=== PATIENT | female | born 1965 | race Caucasian/White ===

== ENCOUNTER 2022-11-04 17:50 | Emergency (ER) | payer BC ==
--- NOTE | 2022-11-04 18:52 | XRAY Report ---
PROCEDURE: Knee 4 View LT INDICATIONS: Trauma TECHNIQUE: 4 views of the left knee(s) were acquired. COMPARISON: None. FINDINGS: Bones: No fractures or dislocations. No suspicious bony lesions. Soft tissues: No knee joint effusion. No suspicious soft tissue calcifications or masses. IMPRESSION: No acute bony abnormality. Reviewed by: Jane Barr MD on 11/04/2022 5:50 PM AKDT Approved by: Jane Barr MD on 11/04/2022 5:50 PM AKDT Station ID: [id number]
--- NOTE | 2022-11-04 18:53 | XRAY Report ---
PROCEDURE: Ankle 3 View LT INDICATIONS: Trauma TECHNIQUE: 3 views of the ankle were acquired. COMPARISON: None. FINDINGS: Bones: There is nondisplaced spiral fracture of the distal fibula at and just above the syndesmosis. The ankle mortise remains intact. Incidental note of moderate plantar calcaneal spur. Soft tissues: Small tibiotalar joint effusion. Achilles tendon appears normal. Moderate lateral pe riarticular soft tissue swelling. IMPRESSION: 1. Distal fibular fracture at the level of the syndesmosis with maintenance of the ankle mortise. Reviewed by: Jane Barr MD on 11/04/2022 5:52 PM ASHLEY Approved by: Jane Barr MD on 11/04/2022 5:52 PM ASHLEY Station ID: [id number]
--- NOTE | 2022-11-04 18:54 | XRAY Report ---
PROCEDURE: Wrist 4 View LT INDICATIONS: Trauma TECHNIQUE: 4 views of the wrist were acquired. COMPARISON: None. FINDINGS: Bones: No fractures or dislocations. No suspicious bony lesions. Soft tissues: No suspicious soft tissue calcifications or masses. IMPRESSION: No acute bony abnormality. Reviewed by: Jane Barr MD on 11/04/2022 5:53 PM AKDT Approved by: Jane Barr MD on 11/04/2022 5:53 PM AKDT Station ID: [id number]
--- NOTE | 2022-11-04 19:36 | ED Physician Documentation ---
History of Present Illness - Stated complaint Stated Complaint: LT WRIST INJ/LT ANKLE INJ - Chief complaint Chief Complaint: Trauma Ext - History obtained from History obtained from: Patient - Additonal information Additional information: Pt comes to the ED with CC of pain of L knee, wrist and ankle after slipping on a downhill gravel path and landing on her L side, twisting her ankle as she went down. The incident happened earlier today. No hitting head or LOC. No spinal pain. PD PAST MEDICAL HISTORY - Present Medications Home Medications: Ambulatory Orders Medication Instructions Recorded Confirmed HYDROcod/ACETAM 5/325 [[place] 5/325] 1 - 2 tablet PO Q6H PRN #20 tablet 11/04/22 - Allergies Allergies/Adverse Reactions: Allergies Allergy/AdvReac Type Severity Reaction Status Date / Time codeine AdvReac Nausea Verified 11/04/22 17:57 morphine AdvReac Nausea Verified 11/04/22 17:57 - Social History Does the pt smoke?: No Smoking Status: Never smoker PD ED PE NORMAL - Vitals Vital signs reviewed: Yes - General General: Alert and oriented X 3, No acute distress - HEENT HEENT: Atraumatic, PERRL, EOMI, Moist mucous membranes - Neck Neck: Supple, no meningeal sign, No bony TTP - Cardiac Cardiac: Strong equal pulses - Respiratory Respiratory: No respiratory distress - Derm Derm: Normal color, Warm and dry, No rash - Extremities Extremities: No deformity, Other (Mild edema/generalized tend L wrist, with mildly decreased ROM. No deformity. Moderate edema L lateral malleolus and distal, TTP, maldonado ROM, no deformity. Gen TTP L knee, no swelling/deform. Maldonado ROM mild) - Neuro Neuro: Alert and oriented X 3 - Psych Psych: Normal mood, Normal affect Results - Vitals Vitals: Vital Signs - 24 hr 11/04/22 11/04/22 17:59 20:52 Temperature 36.8 C 36.7 C Heart Rate 75 70 Respiratory 16 20 Rate Blood Pressure 128/67 126/68 O2 Saturation 97 99 - Rads (name of study) L wrist XR Relevant Findings:: Final report received, See rad report (neg) L knee XR Relevant Findings:: Final report received, See rad report (neg) L ankle XR Relevant Findings:: Final report received, See rad report (torus fx distal fibula, nondisplaced) Procedures - Splint (location) - Minor L ankle Splint applied by: Tech Type of splint: Fiberglass, Posterior, Stirrup Other: Patient tolerated well, No complications, Neurovascular intact, Crutches provided L wrist Splint applied by: Tech Type of splint: Prefab velcro wrist Other: Patient tolerated well, No complications, Neurovascular intact PD Medical Decision Making - ED course Complexity details: reviewed results, re-evaluated patient, considered differential, d/w patient, d/w family ED course: The pt was worked up with XR series of L wrist, knee, and ankle, and found to have a distal fibular fx, otherwise neg. She was placed in a splint and given NWB instructions. She is concerned about using crutches because of her wrist, so I have given her a prescription for a knee scooter and a wheelchair also. The pt is flying back home to [place] in 4 days, but I have given her orthopedic clinic info for here, just in case something changes in her plans and she stays longer. We have discussed the timeline for follow-up, either here or in [place], for casting. Departure - Departure Disposition: Home, Self Care Clinical Impression: Left wrist sprain Qualifiers: Encounter type: initial encounter Qualified Code(s): S63.502A - Unspecified sprain of left wrist, initial encounter Closed fibular fracture Qualifiers: Encounter type: initial encounter Fibula location: distal Fracture morphology: torus Laterality: left Qualified Code(s): S82.822A - Torus fracture of lower end of left fibula, initial encounter for closed fracture Condition: Stable Instructions: ED Fx Lower Ext, ED Sprain Wrist Follow-Up: Palomo Zheng MD [Provider Admit Priv/Credential] - Prescriptions: HYDROcod/ACETAM 5/325 [[place] 5/325] 1 - 2 tablet PO Q6H PRN #20 tablet PRN Reason: Pain Comments: Your wrist and knee x-ray series look good. Your ankle x-ray shows a nondisplaced fracture of the lower end of your fibula, the smaller of your lower leg bones. You have been placed in a splint for this. As we have discussed, you will need to bear no weight on that ankle until cleared by the home theater specialist to do so. To this end, crutches, as well as prescriptions for wheelchair and knee scooter, have been provided. Please set up orthopedic follow-up, either here or at home in [place], as soon as possible. You will need to make an appointment to be seen within the next week for orthopedic evaluation and casting. A prescription for pain medication has been electronically transmitted to the [facility] in [place]. Forms: Activity restrictions Discharge Date/Time: 11/04/22 20:52
[2022-11-04 20:59] VITALS: BP 126/68
== END 2022-11-04 20:52 | disposition home or self-care (01) ==
LOC: ED 17:50
DX: S63.502A Unspecified sprain of left wrist, initial encounter (principal); S82.822A Torus fracture of lower end of left fibula, initial encounter for closed fracture; X50.1XXA Overexertion from prolonged static or awkward postures, initial encounter
CPT/HCPCS: 29515; 99284

== ENCOUNTER 2023-03-25 15:04 | Outpatient (CLI) | payer BC ==
--- NOTE | 2023-03-26 10:57 | Mammography Report ---
BILATERAL DIGITAL SCREENING MAMMOGRAM 3D/2D: 03/25/2023 CLINICAL: Routine screening. No prior exams were available for comparison. There are scattered areas of fibroglandular density in both breasts (category b / 25%-50% glandular t issue). No significant masses, calcifications, or other findings are seen in either breast. IMPRESSION: NEGATIVE There is no mammographic evidence of malignancy. A 1 year screening mammogram is recommended. Based on the Tyrer Cuzick model (a risk assessment model) the patients lifetime risk is 6.1% and her 10 year risk is 2.3%. According to the ACR, ACS, and NCCN guidelines, an annual breast MRI exam kylah g with mammogram is recommended if the patients lifetime risk is 20% or greater. This exam was interpreted at Station ID: [id number]. NOTE: For mammograms, a report in lay terms will be sent to the patient. Approximately 15% of breast malignancies will not be visualized mammographically. In the management of a palpable breast mass, a negative mammogram must not discourage biopsy of a clinically suspicious lesion. Electronically Signed By: Tavo rosales/[email or web address]:03/26/2023 07:37:39 letter sent: No_Letter ACR BI-RADS Category 1: Negative 3341F PARENCHYMAL PATTERN: (A) - The breast(s) demonstrate(s) scattered fibroglandular densities. BI-RADS CATEGORY: (1) - 1 Mammogram [id number] 1 year screening LATERALITY: (B)
== END 2023-03-25 15:05 | disposition home or self-care (01) ==
LOC: DI 15:04
PROVIDERS: ATTEND Internal Medicine
DX: Z12.31 Encounter for screening mammogram for malignant neoplasm of breast (principal); R92.323 Mammographic fibroglandular density, bilateral breasts